=== PATIENT | female | born 2000 | race Caucasian/White ===

== ENCOUNTER 2023-03-19 15:30 | Inpatient (IN) | payer BC, MEDICAID, SELFPAY ==
[2023-03-19] VITALS (43 sets, daily range): BP systolic 91–141; BP diastolic 51–84; PULSE 77–122; RESP 16–18; TEMP 36.3–37.2; O2SAT 98–100; BMI 24.1
[2023-03-19 14:54] LABS: Basophils % 0.2 %; Eosinophils % 0.2 %; Hematocrit 34.3 % (36-47); Lymphocytes % 7.9 %; Mean Corpuscular HGB Conc 33.8 g/dL (30-55); Mean Corpuscular Hemoglobin 29.1 pg (27-33); Mean Corpuscular Volume 86.2 fl (85-98); Mean Platelet Volume 11.3 fL (7.4-10.4); Monocytes # 0.7 10^3/uL (0.2-0.9); Monocytes % 5.2 %; Neutrophils # 10.94 10^3/uL (1.8-7.7); Neutrophils % 86.2 %; Nucleated Red Blood Cells % 0 %; Platelet Count 235 10^3/cmm (157-399); Red Blood Count 3.98 10^6/uL (3.85-5.65); Red Cell Distribution Width 12.2 % (12.1-15.1); White Blood Count 12.71 10^3/uL (3.29-11.43)
[2023-03-19] MEDS: ROPivacaine syringe 100 MG/50 ML SYRINGE 10 MG EPIDURAL (15:13)
[2023-03-19] MEDS: lactated ringers 1,000 ML 999 ML IV (15:13)
--- NOTE | 2023-03-19 15:46 | PC.NURSE ---
IV STARTED IN LEFT FOREARM WITH #20 JELCO ON 4TH ATTEMPT. 1ST ATTEMPT BY [facility] TELEGRAPHIC TYPEWRITER OPERATOR AND THEN BY THIS ENDOCRINOLOGY TEACHER, PATIENT HAS LOTS OF VALVES, UNABLE TO ADVANCE IV CATH.
--- NOTE | 2023-03-19 15:49 | ANES.PREANE2 ---
Pre-Anesthetic Assessment Height/Weight: Height 1.57 m Weight 59.874 kg Temp Pulse BP Pulse Ox O2 Del Method 97.3 F L 110 H 106/67 100 Room Air 03/19/23 14:34 03/19/23 15:45 03/19/23 15:45 03/19/23 15:43 03/19/23 13:45 Familial anesthetic complications: none Was Beta Chio taken within 24 hours: N/A Was Clonidine taken within 24 hours: N/A Social No alcohol and No tobacco Exam alert, oriented x 3, clear to auscultation bilaterally and regular rate & rhythm Airway Submandibular: within normal limits Cervical ROM: within normal limits Mallampati: Class II Dentition: chipped (caries) Anesthetic Plan ASA status: 2 Anesthesia: Regional (specify below) (Labor epidural) Medications/Allergies Home Medications Medication Instructions Recorded Confirmed Last Taken Type No Known Home Medications 03/19/23 03/19/23 Unknown History Allergies Allergy/AdvReac Type Severity Reaction Status Date / Time No Known Allergies Allergy Verified 03/19/23 14:43 Current Medications Generic Name Dose Route Start Last Admin Trade Name Freq PRN Reason Stop Dose Admin Lactated Ringer's 1,000 mls @ 999 mls/hr 03/19/23 14:32 03/19/23 15:13 Lactated Ringers IV 999 mls/hr .Q1H1M PRN Administration See label comments Ropivacaine 100 mg in 50 mls @ 10 mls/hr 03/19/23 14:45 03/19/23 15:13 Naropin Syringe EPIDURAL 10 mls/hr .Q5H NITHIN Administration PFSH Anesthesia Female Reproductive History : 3 Data Anesthesia 03/19/23 14:20 Short CBC 03/19/23 Range/Units 14:20 WBC 12.71 H (3.29-11.43) 10^3/uL Hgb 11.60 (11.27-16.99) g/dL Hct 34.3 L (36-47) % MCV 86.2 (85-98) fl Plt Count 235 (157-399) 10^3/cmm Neut % (Auto) 86.2 % Neut # (Auto) 10.94 H (1.8-7.7) 10^3/uL Blood Bank 03/19/23 14:20 Blood Type A Positive Rho(D) Type Positive Antibody Screen Negative Cardiac Studies: No Data to Display Anesthesia Procedures Epidural Time Out Performed: Yes Consents Signed: Procedure Consent Consent: requested by attending/covering physician, from patient, risks and benefits reviewed and patient agrees to proceed Lumbar Level: L3-L4 Epidural position: sitting Epidural procedure: sterile prep of area, 1% lidocaine to numb the area, 18 g needle, neg for paresthesia, test dose given, 1.5% xylocaine 1:200k epi, placed PCEA, no systemic response, sterile dressing applied and 0.2% Ropiavacaine @ mls/hr (10) Additional Comments: DEMI at 5cm, cath at 10cm, bolused 5mls of 2% lido
[2023-03-19] MEDS: ondansetron 2 mg/ML SDV 2 mL 4 MG IVP (17:12)
--- NOTE | 2023-03-19 17:17 | P.HP_ITS ---
Providers/Chief Complaint Admitting Physician: Evan Waldrop MD Primary Care Provider: Melissa Das [employer] MUSIC TEACHER-C Chief Complaint: Contractions and spotting HPI RAIL BENDER History of Present Illness Carol Velasco is a 22 year old G3, P1 female that presents at 36 weeks 4 days with contractions. Patient has been having contractions off and on over the last week. They have been more often going on for the last 2 days. Today she has noted contractions every 5 minutes and some bloody mucus. Patient denies any loss of fluids. Initial vaginal check was 5 cm dilation. Patient was admitted for labor management. Her care has been unremarkable. Her labs have been normal. Recent GBS was negative. Present Details : 3 Para: 1 Labs Blood type OB HPI: A (+) positive Rubella: Immune RPR: Negative GBS: Negative HBsAG: Negative Review of Systems General: Reports: 10 or more systems reviewed and unremarkable except in HPI and below Medications/Allergies Home Medications Medication Instructions Recorded Confirmed Last Taken Type No Known Home Medications 03/19/23 03/19/23 Unknown History Allergies Allergy/AdvReac Type Severity Reaction Status Date / Time No Known Allergies Allergy Verified 03/19/23 14:43 Vitals/I&O/Wt Last Vital Signs Temp 97.5 F L 03/19/23 17:11 Pulse 117 H 03/19/23 17:14 Resp 18 03/19/23 14:31 BP 101/57 03/19/23 17:14 Pulse Ox 99 03/19/23 15:53 O2 Del Method Room Air 03/19/23 13:45 Weight last 48 hrs Weight 59.874 kg Weight 59.874 kg Physical Exam Const: COMMON NORMALS: no acute distress Resp: COMMON NORMALS: normal respiratory effort and No retractions Cardio: COMMON NORMALS: no JVD, regular rate and regular rhythm GI: OTHER: Gravid uterus Extremity: COMMON NORMALS: no clubbing, cyanosis or edema Neuro: COMMON NORMALS: moves all extremities, no focal motor deficits and no sensory deficits noted Psych: COMMON NORMALS: mental status grossly normal Skin: COMMON NORMALS: no rashes or lesions noted Urinary Catheter Management: Oleary: Cath Placed During This Visit: yes Urinary Catheter Date of Insertion: 03/19/23 Urinary Catheter Time of Insertion: 15:45 Data 03/19/23 14:20 Results Labs OB ([facility]): Blood Type A Positive 03/19/23 Antibody Screen Negative 03/19/23 Hct 34.3 % (36-47) L 03/19/23 Hgb 11.60 g/dL (11.27-16.99) 03/19/23 Rho(D) Type Positive 03/19/23 Plt Count 235 10^3/cmm (157-399) 03/19/23 A&P Assessment and plan (1) Normal in multigravida in third trimester: (2) 36 weeks gestation of : (3) contractions: The patient was initially at 5 cm and was ivy regularly every 5 minutes. We will proceed with routine labor management. Given the late status no further intervention is needed. Attestations Medical Necessity Statement*: Admit for labor. Anticipate at least 1 midnight stay. Coding Level of Care Code Acute Code for Chg Fwd Diagnoses Normal in multigravida in third trimester Z34.83 36 weeks gestation of Z3A.36 contractions O47.00
[2023-03-19] MEDS: oxytocin 30 UNIT/500 ML BAG 999 UNIT IV (18:29)
--- NOTE | 2023-03-19 18:37 | PM.DELIVERY ---
Delivery Note: Date of delivery: March 19, 2023 Pre-delivery diagnoses: intrauterine Post-delivery diagnoses: Same, viable infant female Procedure: Spontaneous vaginal delivery Op report anesthesia: Epidural Estimated blood loss (mL): 200 Pre-Delivery Course: This is a 22-year-old G3, P2 that presented at 36 weeks 4 days with contractions. Patient had advanced dilation at presentation at 5 cm. Patient had spontaneous rupture of membranes and soon after was completely dilated. Delivery: After the patient was found to be completely dilated patient was pushed into the normal lithotomy position. Patient started pushing with each contraction. After several pushes 's head was delivered followed by the infant's shoulder and body Atraumatically. The was placed on mother's abdomen. After delayed cord clamping the cord was clamped and cut. Placenta was delivered soon after. Review of the perineum did show first-degree periurethral and first-degree right labial tears. Some bleeding was noted so these were repaired with 3-0 chromic. After the end of the procedure bleeding was controlled and uterus was firm. Post-Delivery Status: Stable History History History 3 Term 2 Miscarriages/Ectopic 1 Living Children 2 A&P Assessment and plan (1) 36 weeks gestation of : (2) contractions: (3) Vaginal delivery: Proceed with routine care Coding Level of Care Code Acute Code for Chg Fwd Diagnoses 36 weeks gestation of Z3A.36 contractions O47.00 Vaginal delivery O80
[2023-03-19] MEDS: ibuprofen 800 mg tablet PO (22:49)
[2023-03-20 00:50] VITALS: BP 108/67; PULSE 94; RESP 15; TEMP 37.2
[2023-03-20 02:19] VITALS: BP 106/69; PULSE 89; RESP 16; TEMP 36.8
[2023-03-20 04:05] VITALS: BP 97/54; PULSE 82; RESP 14; TEMP 36.7
[2023-03-20 07:13] LABS: Hematocrit 29.7 % (36-47); Mean Corpuscular Hemoglobin 29.1 pg (27-33); Mean Corpuscular Volume 85.6 fl (85-98); Mean Platelet Volume 10.7 fL (7.4-10.4); Platelet Count 190 10^3/cmm (157-399); Red Blood Count 3.47 10^6/uL (3.85-5.65); Red Cell Distribution Width 12.1 % (12.1-15.1); White Blood Count 11.81 10^3/uL (3.29-11.43)
[2023-03-20] MEDS: ibuprofen 800 mg tablet PO ×2 (09:17→15:32)
[2023-03-20] MEDS: prenatal vitamin Capsule 1 CAP PO (09:18)
[2023-03-20] MEDS: docusate sodium 100 mg Capsule PO ×2 (09:18→17:39)
[2023-03-20 09:19] VITALS: BP 95/63; PULSE 78; RESP 16; TEMP 36.5
[2023-03-20 15:28] VITALS: BP 95/61; PULSE 80; RESP 16; TEMP 36.9
--- NOTE | 2023-03-20 17:28 | P.DS_ITS ---
Discharge Providers [employer]ATIONS DEPUTY DIRECTOR Date of Admission: 03/19/23 15:30 Date of Discharge: 03/20/23 Attending Provider at Admission: Evan Waldrop MD Attending Provider at Discharge: Evan Waldrop MD Primary Care Provider: Melissa Das-Yaquelin Diagnoses at Discharge Discharge Diagnosis (1) 36 weeks gestation of : Status: Acute (2) contractions: Status: Acute (3) Vaginal delivery: Status: Acute Reason for Visit Reason for Visit: Contractions and spotting Hospital Course Hospital Course This is a 22-year-old that presented at 36 weeks 4 days with regular contractions. Patient was dilated to 5 cm at presentation. Patient did progress as expected over the next several hours. The patient did spontaneously rupture her membranes and became completely dilated within approximately 30 minutes from then. The patient then delivered a viable infant female without difficulties. care was unremarkable. Information Peripartum Data: Delivery Method: Vaginal Physical Exam Const: COMMON NORMALS: no acute distress Neck/C-Spine: COMMON NORMALS: no JVD Resp: COMMON NORMALS: normal respiratory effort and No retractions Cardio: COMMON NORMALS: no JVD, regular rate and regular rhythm RATE: regular rate RHYTHM: regular rhythm GI: OTHER: Uterus below the umbilicus Extremity: COMMON NORMALS: no clubbing, cyanosis or edema Neuro: COMMON NORMALS: moves all extremities, no focal motor deficits and no sensory deficits noted Psych: COMMON NORMALS: mental status grossly normal Skin: COMMON NORMALS: no rashes or lesions noted GENERAL SKIN EXAM: no rashes or lesions noted Urinary Catheter Management: Oleary: Cath Placed During This Visit: yes Urinary Catheter Date of Insertion: 03/19/23 Urinary Catheter Time of Insertion: 15:45 History History History 3 Term 2 Miscarriages/Ectopic 1 Living Children 2 Discharge Data Studies Completed and Pending Laboratory Results WBC 11.81 10^3/uL (3.29-11.43) H 03/20/23 06:40 RBC 3.47 10^6/uL (3.85-5.65) L 03/20/23 06:40 Hgb 10.10 g/dL (11.27-16.99) L 03/20/23 06:40 Hct 29.7 % (36-47) L 03/20/23 06:40 MCV 85.6 fl (85-98) 03/20/23 06:40 MCH 29.1 pg (27-33) 03/20/23 06:40 MCHC 34.0 g/dL (30-55) 03/20/23 06:40 RDW 12.1 % (12.1-15.1) 03/20/23 06:40 Plt Count 190 10^3/cmm (157-399) 03/20/23 06:40 MPV 10.7 fL (7.4-10.4) H 03/20/23 06:40 Neut % (Auto) 86.2 % 03/19/23 14:20 Lymph % (Auto) 7.9 % 03/19/23 14:20 [place] % (Auto) 5.2 % 03/19/23 14:20 Eos % (Auto) 0.2 % 03/19/23 14:20 Baso % (Auto) 0.2 % 03/19/23 14:20 Neut # (Auto) 10.94 10^3/uL (1.8-7.7) H 03/19/23 14:20 Lymph # (Auto) 1.0 10^3/uL (0.8-4.8) 03/19/23 14:20 [place] # (Auto) 0.7 10^3/uL (0.2-0.9) 03/19/23 14:20 Eos # (Auto) 0.0 10^3/uL (0.0-0.8) 03/19/23 14:20 Baso # (Auto) 0.0 10^3/uL (0.0-0.1) 03/19/23 14:20 Nucleated RBC % (auto) 0 % 03/19/23 14:20 Nucleated RBCs # 0.0 /100WBC 03/19/23 14:20 Blood Type A Positive 03/19/23 14:20 Rho(D) Type Positive 03/19/23 14:20 Antibody Screen Negative 03/19/23 14:20 Vitals Last Vital Signs Temp 98.5 F 03/20/23 15:28 Pulse 80 03/20/23 15:28 Resp 16 03/20/23 15:28 BP 95/61 03/20/23 15:28 Pulse Ox 99 03/19/23 15:53 O2 Del Method Room Air 03/19/23 13:45 Results Labs OB ([facility]): Blood Type A Positive 03/19/23 Antibody Screen Negative 03/19/23 Hct 29.7 % (36-47) L 03/20/23 Hgb 10.10 g/dL (11.27-16.99) L 03/20/23 Rho(D) Type Positive 03/19/23 Plt Count 190 10^3/cmm (157-399) 03/20/23 Discharge Plan Discharge Patient Disposition: Home Condition: Stable Prescriptions: No Action No Known Home Medications Discharge Orders: Discharge Order (Routine); Ordered 03/20/23 Ordered By: Evan Waldrop Referrals: Evan Waldrop MD [Physician] - 6 Weeks Discharge Diet: Usual diet Discharge Activity: Limit activity as instructed Patient Instructions: Opioid Safety Discharge Attestations [employer] DEPUTY DIRECTOR Time Spent in Discharge Care*: less than 30 min Coding Level of Care Code Acute Code for Chg Fwd Diagnoses 36 weeks gestation of Z3A.36 contractions O47.00 Vaginal delivery O80
[2023-03-20 19:55] VITALS: BP 104/68; PULSE 99; RESP 16; TEMP 36.8; O2SAT 98
--- NOTE | 2023-03-21 08:00 | ANE.PACU2 ---
Inpatient post-anesthesia follow up: Airway intact: Yes Vital signs: Temperature 98.3 F Pulse Rate 99 Respiratory Rate 16 Blood Pressure 104/68 Pulse Oximetry 98 Oxygen Delivery Me thod Room Air Oxygen Flow Rate Fraction of Inspir ed Oxygen Hydration adequate: Yes Nausea and vomiting: No Pain level: 1 Mental status: Baseline
== END 2023-03-20 19:55 | disposition home or self-care (01) | DRG 807 ==
LOC: OPOB 17:02 → OBGYN 17:02
PROVIDERS: Admitting Provider Family Medicine; PCP Nurse Practitioner Family; Visit Provider Family Medicine
DX: O60.14X0 Preterm labor third trimester with preterm delivery third trimester, not applicable or unspecified (principal); Z37.0 Single live birth; Z3A.36 36 weeks gestation of pregnancy; O70.0 First degree perineal laceration during delivery
CPT/HCPCS: 36415; 51702; 59025; 59409; 85025; 85027; 86850; 86900; 96374; 99211; J2405; J2590; J2795; J7120

== ENCOUNTER 2024-06-17 08:57 | Emergency (ER) | payer BC, MEDICAID, SELFPAY ==
[2024-06-17 09:38] VITALS: BP 114/81; PULSE 92; TEMP 36.9; O2SAT 98; BMI 23.8
--- NOTE | 2024-06-17 09:54 | W.ED.ABDPA2 ---
HPI - Abdominal Pain General: Chief Complaint: Abdominal Pain Stated Complaint: abd pain, back pain Time Seen by Provider: 06/17/24 09:15 History of Present Illness: 23-year-old female presents emergency room complaining of abdominal pain for the last few days. She notes it is worse when she eats and at times when she moves. She denies any medic easy melena hematemesis cough cramps no dysuria urgency or frequency she has had a couple loose stools overnight Associated Symptoms: Reports diarrhea and nausea; Denies chills, dysuria and fever(s) Related Data Previous Rx's Medication Instructions Recorded ondansetron HCl 4 mg tablet 4 mg PO Q6H PRN nausea and 06/17/24 vomiting #20 tabs Allergies Allergy/AdvReac Type Severity Reaction Status Date / Time No Known Allergies Allergy Verified 06/17/24 09:42 Review of Systems Const: Denies: fever(s) or chills Card: Denies: chest pain Resp: Denies: dyspnea GI: Reports: abdominal pain, nausea and diarrhea : Denies: dysuria, urinary frequency or urinary urgency Musc: Denies: neck pain or back pain Skin/Breast: Denies: rash Physical Exam Const: COMMON NORMALS: no acute distress GENERAL APPEARANCE: cooperative and comfortable ORIENTATION/CONSCIOUSNESS: Yes awake, Yes oriented to person, Yes oriented to place and Yes oriented to time HENMT: COMMON NORMALS: normocephalic, atraumatic and hearing grossly normal bilaterally HEAD & SCALP: normocephalic and atraumatic Resp: COMMON NORMALS: normal respiratory effort, No retractions, No use of accessory muscles and clear to auscultation bilaterally AUSCULTATION: clear to auscultation bilaterally Cardio: COMMON NORMALS: regular rate, regular rhythm and No murmurs present (Cardio) RATE: regular rate RHYTHM: regular rhythm GI: COMMON NORMALS: No hepatosplenomegaly present AUSCULTATION: Yes normoactive bowel sounds PALPATION: Yes Tenderness to palpation present (GI) (Mild diffuse), No Guarding due to palpation present (GI) and Yes No hepatosplenomegaly present Extremity: COMMON NORMALS: normal to inspection, capillary refill normal, no clubbing, cyanosis or edema, no calf tenderness and no pedal edema Neuro: SENSORIUM/ORIENTATION: Yes oriented to person, Yes oriented to place and Yes oriented to time Skin: COMMON NORMALS: no rashes or lesions noted GENERAL SKIN EXAM: no rashes or lesions noted Course Vital Signs: Vital signs: Vital Signs Temperature 98.5 F 06/17/24 09:38 Pulse Rate 73 06/17/24 11:34 Blood Pressure 102/61 06/17/24 11:34 Pulse Oximetry 98 06/17/24 11:34 Oxygen Delivery Me thod Room Air 06/17/24 10:05 MDM - Abdominal Pain Medical Decision Making CT is negative. Patient had given her history that her gallstones removed that her still gallbladder was still intact. CT shows she has had a cholecystectomy. Based on her scars on her abdomen she had laparoscopic cholecystectomy. Informed the patient that he does not have a gallbladder. Will discharge her home clear liquid diet antiemetics as needed. Medical Records I reviewed the patient's medical records. Lab Data I reviewed the patient's lab results. 06/17/24 09:54 06/17/24 09:54 Labs/Radiology: Radiology Impressions Abdomen/Pelvis CT 06/17/24 09:59 IMPRESSION: 1. Prior cholecystectomy. 2. Small amount of submucosal enhancement in the distal small bowel and colon suspicious for enterocolitis. This is likely infectious or inflammatory. 3. Prominent parauterine vessels can be seen with pelvic congestion syndrome in the appropriate clinical setting. 4. No other acute findings. Notified Andrew Guerra DO at 06/17/2024 11:15 AM. Laboratory Results WBC 6.61 10^3/uL (3.29-11.43) 06/17/24 09:54 RBC 5.38 10^6/uL (3.85-5.65) 06/17/24 09:54 Hgb 16.10 g/dL (11.27-16.99) 06/17/24 09:54 Hct 47.4 % (36-47) H 06/17/24 09:54 MCV 88.1 fl (85-98) 06/17/24 09:54 MCH 29.9 pg (27-33) 06/17/24 09:54 MCHC 34.0 g/dL (30-55) 06/17/24 09:54 RDW 12.9 % (12.1-15.1) 06/17/24 09:54 Plt Count 246 10^3/cmm (157-399) 06/17/24 09:54 MPV 10.6 fL (7.4-10.4) H 06/17/24 09:54 Neut % (Auto) 76.3 % 06/17/24 09:54 Lymph % (Auto) 15.4 % 06/17/24 09:54 [place] % (Auto) 7.1 % 06/17/24 09:54 Eos % (Auto) 0.5 % 06/17/24 09:54 Baso % (Auto) 0.5 % 06/17/24 09:54 Neut # (Auto) 5.05 10^3/uL (1.8-7.7) 06/17/24 09:54 Lymph # (Auto) 1.0 10^3/uL (0.8-4.8) 06/17/24 09:54 [place] # (Auto) 0.5 10^3/uL (0.2-0.9) 06/17/24 09:54 Eos # (Auto) 0.0 10^3/uL (0.0-0.8) 06/17/24 09:54 Baso # (Auto) 0.0 10^3/uL (0.0-0.1) 06/17/24 09:54 Nucleated RBC % (auto) 0 % 06/17/24 09:54 Nucleated RBCs # 0.0 /100WBC 06/17/24 09:54 Sodium 140 mmol/L (136-145) 06/17/24 09:54 Potassium 3.5 mmol/L (3.5-5.1) 06/17/24 09:54 Chloride 103 mmol/L (98-107) 06/17/24 09:54 Carbon Dioxide 25 mmol/L (22-29) 06/17/24 09:54 Anion Gap 15.5 (5-19) 06/17/24 09:54 BUN 9 mg/dL (6-20) 06/17/24 09:54 Creatinine 0.7 mg/dL (0.5-0.9) 06/17/24 09:54 GFR Calculation 102.8 mL/min (90-130) 06/17/24 09:54 Glucose 89 mg/dL (65-115) 06/17/24 09:54 Calculated Osmolality 288 mOsm/kg (285-295) 06/17/24 09:54 Calcium 9.8 mg/dL (8.5-10.5) 06/17/24 09:54 Total Bilirubin 0.6 mg/dL (0.15-1.2) 06/17/24 09:54 AST 14 U/L (0-32) 06/17/24 09:54 ALT 15 U/L (0-33) 06/17/24 09:54 Alkaline Phosphatase 94 U/L (35-105) 06/17/24 09:54 Total Protein 8.5 g/dL (6.6-8.7) 06/17/24 09:54 Albumin 5.1 g/dL (3.5-5.2) 06/17/24 09:54 Globulin 3.4 g/dL (1.3-4.6) 06/17/24 09:54 HCG, Qual Negative (Negative) 06/17/24 09:54 Urine Color Yellow (Yellow) 06/17/24 09:49 Urine Appearance Clear (CLEAR) 06/17/24 09:49 Urine pH 6.0 (5-7) 06/17/24 09:49 Ur Specific [place] 1.027 (1.005-1.030) 06/17/24 09:49 Urine Protein Negative (Negative) 06/17/24 09:49 Urine Glucose (UA) Negative (Normal) 06/17/24 09:49 Urine Ketones Negative (Negative) 06/17/24 09:49 Urine Blood Negative (Negative) 06/17/24 09:49 Urine Nitrate Negative (Negative) 06/17/24 09:49 Urine Bilirubin Negative (Negative) 06/17/24 09:49 Urine Urobilinogen 1.0 mg/dL (Negative) 06/17/24 09:49 Ur Leukocyte Esterase Negative (Negative) 06/17/24 09:49 Urine RBC 0-2 /hpf (0-2) 06/17/24 09:49 Urine WBC 0-5 /hpf (0-5) 06/17/24 09:49 Ur Squamous Epith Cells 0-5 /hpf (0-5) 06/17/24 09:49 Amorphous Sediment Not Reportable 06/17/24 09:49 Urine Bacteria Trace /hpf (NONE) 06/17/24 09:49 Hyaline Casts 2.05 /lpf 06/17/24 09:49 All radiology interpretation(s) finalized by discharge Discharge Plan Discharge Patient Disposition: Home Clinical Impression: Colitis Condition: Stable Prescriptions: New ondansetron HCl 4 mg tablet 4 mg PO Q6H PRN (Reason: nausea and vomiting) Qty: 20 0RF Discharge Orders: Discharge ED (Routine); Ordered 06/17/24 Ordered By: Andrew Guerra Referrals: Melissa Das, REHABILITATION TEACHER-C [Primary Care Provider] - Discharge Diet: Clear Liquid Discharge Activity: Resume usual activity Patient Instructions: Colitis (ED), Opioid Safety, Pain Management Activity Restrictions/Additional Instructions: Thank you for choosing [facility] for your healthcare needs today. It is very important that you follow up as instructed or that you return to the Emergency Department should you have concerns or if your condition changes or worsens in any way. You were seen in the emergency room with complaints of abdominal discomfort. CT shows that you have previously had a cholecystectomy. The remainder of your labs were normal and there is some mild irritation to the colon on the CT. This is likely viral in nature recommend clear liquid diet you can use antiemetics as needed to help with stomach upset. As your symptoms improve you can begin to advance your diet. No antibiotics are required at this time. Coding Level of Care Code ED Straightening Machine Feeder for Fredy Mays
--- NOTE | 2024-06-17 09:59 | CT_ITS ---
WS: [id number] CT ABDOMEN PELVIS TECHNIQUE: Contrast-enhanced CT of the abdomen and pelvis with coronal and sagittal reformatted image s. CLINICAL INFORMATION: abd pain COMPARISON: None. DLP: 356.[address] scans at [facility] use at least one of these dose optimization techniques: automated e xposure control; mA and/or kV adjustment per patient size (includes targeted exams where dose is matc hed to clinical indication); or iterative reconstruction. FINDINGS: Prior cholecystectomy. Mild diffuse fatty infiltration of the liver. Normal portal vein and splenic v ein. Normal spleen. Normal GE junction. Normal pancreatic parenchymal enhancement. Celiac and SMA are patent. Adrenal glands are normal. Normal renal parenchymal enhancement. No hydronephrosis. Normal c aliber abdominal aorta. Lung bases are well aerated. Tiny fat-containing umbilical hernia. Prominent parauterine vessels can be seen with pelvic congestion syndrome in the appropriate clinical setting. No evidence of acute nati endicitis. Small amount of submucosal enhancement in the distal small bowel and colon suspicious for enterocolit is. This is likely infectious or inflammatory. No evidence of small or large bowel obstruction. CT/CT abdomen pelvis w con* [id number] IMPRESSION: 1. Prior cholecystectomy. 2. Small amount of submucosal enhancement in the distal small bowel and colon suspicious for enterocolitis. This is likely infectious or inflammatory. 3. Prominent parauterine vessels can be seen with pelvic congestion syndrome i n the appropriate clinical setting. 4. No other acute findings. Notified Andrew Guerra DO at 06/17/2024 11:15 AM.
[2024-06-17 10:01] LABS: Basophils % 0.5 %; Eosinophils % 0.5 %; Hematocrit 47.4 % (36-47); Lymphocytes % 15.4 %; Mean Corpuscular Hemoglobin 29.9 pg (27-33); Mean Corpuscular Volume 88.1 fl (85-98); Mean Platelet Volume 10.6 fL (7.4-10.4); Monocytes # 0.5 10^3/uL (0.2-0.9); Monocytes % 7.1 %; Neutrophils # 5.05 10^3/uL (1.8-7.7); Neutrophils % 76.3 %; Nucleated Red Blood Cells % 0 %; Platelet Count 246 10^3/cmm (157-399); Red Blood Count 5.38 10^6/uL (3.85-5.65); Red Cell Distribution Width 12.9 % (12.1-15.1); White Blood Count 6.61 10^3/uL (3.29-11.43)
[2024-06-17 10:05] VITALS: BP 103/64; PULSE 63; O2SAT 98
[2024-06-17 10:05] LABS: Bilirubin Urine Negative (Negative); Blood Urine Negative (Negative); Glucose Urine UA Negative (Normal); Ketones Urine Negative (Negative); Leukocyte Esterase Urine Negative (Negative); Nitrate Urine Negative (Negative); Protein Urine Negative (Negative); Specific Gravity, Urine 1.027 (1.005-1.030); Urine Appearance Clear (CLEAR); Urine Color Yellow (Yellow)
[2024-06-17 10:10] LABS: Add Urine Microscopic? YES; Bacteria Urine Trace /hpf; Hyaline Casts Urine 2.05 /lpf; RBC Urine 0-2 /hpf (0-2); Squamous Epithelial Cell Urine 0-5 /hpf (0-5); WBC Urine 0-5 /hpf (0-5)
--- NOTE | 2024-06-17 10:12 | PC.PHAR ---
Pt has a control implant but no other medications.
[2024-06-17 10:19] LABS: HCG, Serum Qual Negative (Negative)
[2024-06-17 10:21] LABS: Alanine Aminotransferase 15 U/L (0-33); Albumin Level 5.1 g/dL (3.5-5.2); Alkaline Phosphatase 94 U/L (35-105); Anion Gap 15.5 (5-19); Aspartate Amino Transferase 14 U/L (0-32); Blood Urea Nitrogen 9 mg/dL (6-20); Calcium 9.8 mg/dL (8.5-10.5); Carbon Dioxide 25 mmol/L (22-29); Chloride 103 mmol/L (98-107); Creatinine Clr Calc Pharmacy 104.9519; Globulin 3.4 g/dL (1.3-4.6); Glomerular Filtration Rate 102.8 mL/min (90-130); Glucose 89 mg/dL (65-115); Osmolality Calculated 288 mOsm/kg (285-295); Potassium 3.5 mmol/L (3.5-5.1); Sodium 140 mmol/L (136-145); Total Bilirubin 0.6 mg/dL (0.15-1.2); Total Protein 8.5 g/dL (6.6-8.7)
[2024-06-17] MEDS: iohexol 350 mg/mL 500 mL Btl (per mL) IV (10:43)
[2024-06-17 11:34] VITALS: BP 102/61; PULSE 73; O2SAT 98
== END 2024-06-17 11:35 | disposition home or self-care (01) ==
PROVIDERS: Emergency Provider Family Medicine; PCP Nurse Practitioner Family
DX: K52.9 Noninfective gastroenteritis and colitis, unspecified (principal)
CPT/HCPCS: 74177; 80053; 81001; 84703; 85025; 99285